=== PATIENT | male | born 1965 | race Caucasian/White ===

== ENCOUNTER 2018-11-11 10:29 | Emergency (ER) | payer OTHER ==
[~2018-11-11] VITALS: Ht 182.9 cm; Wt 109.1 kg
[2018-11-11 10:45] VITALS: Ht 182.9 cm; Wt 109.1 kg
[2018-11-11 11:41] VITALS: BP 119/67
== END 2018-11-11 11:38 | disposition home or self-care (01) ==
LOC: D.ER 10:29
DX: S51.811A Laceration without foreign body of right forearm, initial encounter (principal); W26.8XXA Contact with other sharp object(s), not elsewhere classified, initial encounter; Y93.89 Activity, other specified; Y92.89 Other specified places as the place of occurrence of the external cause

== ENCOUNTER → 2019-08-02 14:06 | Outpatient (CLI) | payer OTHER ==
[2018-11-11 10:45] VITALS: BMI 32.6
--- NOTE | 2019-08-05 11:53 | ST ---
PATIENT:OLIVIA GARCÍA MEDICAL RECORD: [id number] SEX: M LOCATION:[facility] ORDER #: ADMISSION DATE: 08/02/19 AGE OF PATIENT: 53 REFERRING PHYSICIAN: INTERPRETING PHYSICIAN: NIRAJ DALLAS MD DATE OF SERVICE: 08/02/2019 PROCEDURE: Treadmill stress test. TECHNIQUE: Baseline ECG is normal. Exercised for 10 minutes on Lester protocol. Maximum heart rate is 160 beats per minute, greater than 85% of max predicted. No ECG changes of ischemia. No symptoms of ischemia. Normal blood pressure response to exercise. No arrhythmias noted. Good exercise tolerance for age. 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
== END | disposition home or self-care (01) ==
LOC: D.HCCARDIO 14:06
PROVIDERS: ATTEND Internal Medicine Interventional Cardiology
DX: I20.9 Angina pectoris, unspecified (principal)